=== PATIENT | female | born 1945 | race African-American/Black ===

== ENCOUNTER → 2017-09-21 | Outpatient (CLI) | payer OTHER ==
[~2017-09-21] MED LIST: ALEN1TAB48 PO; AMLO10 PO; AMLO10TA2 PO; ATOR20TA PO; ATOR20TA15 PO; ENOX40P SQ; GLUCTAB PO; LISI-363 PO; LISI-515 PO; METF500T4 PO; NAPR-729 PO; THERM PO; VENL-37 PO; VENL75TA2 PO
--- NOTE | 2017-09-21 11:14 | RADRPT ---
EXAM DATE/TIME: 09/21/2017 10:59 [facility] COMPARISON: No previous studies available for comparison. INDICATIONS : Evaluate for pneumonia, pneumothorax, or communicable disease. Pre op for cervical spine surgery on 2017. MEDICAL HISTORY : Hypertension. Diabetes mellitus type II. SURGICAL HISTORY : None. ENCOUNTER: Initial ACUITY: 1 day PAIN SCORE: 0/10 LOCATION: Bilateral chest FINDINGS: PA and lateral views of the chest demonstrate the lungs to be symmetrically aerated without evidence of mass, infiltrate or effusion. The cardiomediastinal contours are unremarkable. Osseous structure s are intact. CONCLUSION: No acute disease. Kody Harris MD on September 21, 2017 at 11:11 Board Certified Radiologist. This report was verified electronically.
--- NOTE | 2017-09-21 22:57 | EKG ---
Date Performed: 09/21/2017 Time Performed: 09:53:37 PTAGE: 72 years EKG: Sinus rhythm NORMAL ECG NO PREVIOUS TRACING DOCTOR: Chet Holt Interpretating Date/Time 09/21/2017 22:56:20
== END ==
LOC: CPRE 08:50
PROVIDERS: ATTEND Neurological Surgery
DX: Z01.812 Encounter for preprocedural laboratory examination (principal); Z01.810 Encounter for preprocedural cardiovascular examination; Z01.811 Encounter for preprocedural respiratory examination; Z01.818 Encounter for other preprocedural examination
CPT/HCPCS: 71046; 87640; 87641; 93005

== ENCOUNTER 2017-10-07 05:53 | Observation (INO) | payer OTHER ==
[~2017-10-07] VITALS: Ht 154.9 cm; Wt 62.9 kg
[~2017-10-07 05:53] MED LIST changes: -AMLO10 PO; -ATOR20TA PO; -ENOX40P SQ; -GLUCTAB PO; -LISI-363 PO; -NAPR-729 PO; -THERM PO; -VENL-37 PO
[2017-10-07] MEDS ORDERED: CHLORHEXIDINE GLUCONATE 2 % 1 PACK (2 CLOTHS) TOPICAL PRN (06:30)
[2017-10-07] MEDS ORDERED: SODIUM CHLORID 0.9% 500 ML IV PRN (06:30)
[2017-10-07] MEDS ORDERED: LACTATED RINGER'S 1000 ML IV PRN (06:30)
[2017-10-07] MEDS ORDERED: CEFAZOLIN INJ 2,000 MG in SODIUM CHLORIDE 0.9% INJ 100 ML IV SCH (06:30)
[2017-10-07] MEDS ORDERED: METOPROLOL TARTRATE 25 MG TAB PO PRN (06:30)
[2017-10-07] MEDS ORDERED: POVIDONE IODINE 5% (ANTISEPSIS KIT) 4 APPLICATIONS EACH NARE PRN (06:30)
[2017-10-07] MEDS ORDERED: GENTAMICIN SULFATE 80 MG/2 ML VIAL ONE (07:24)
[2017-10-07] MEDS ORDERED: THROMBIN (TOPICAL) 5,000 UNIT VIAL ONE (07:24)
[2017-10-07] MEDS ORDERED: GELFOAM SIZE 100 ONE (07:24)
[2017-10-07] MEDS ORDERED: ACETAMINOPHEN 1000 MG/100 ML 100 ML IV ONE ×2 (08:37→09:16)
[2017-10-07] MEDS ORDERED: HYDROmorphone HCL PF 2 MG/ML VIAL ONE (08:38)
[2017-10-07] MEDS ORDERED: PROPOFOL 500 MG/50 ML INJ 150 ML ONE (08:38)
[2017-10-07] MEDS ORDERED: PROPOFOL 500 MG/50 ML INJ 50 ML ONE (09:16)
[2017-10-07] MEDS ORDERED: PROPOFOL 500 MG/50 ML INJ 100 ML ONE (09:17)
[2017-10-07] MEDS ORDERED: DEXAMETHASONE SOD PHOS 4 MG/ML VIAL ONE (09:17)
[2017-10-07] MEDS ORDERED: ROCURONIUM INJ 50 MG/5 ML SYRINGE IV PUSH ONE (12:00)
[2017-10-07] MEDS ORDERED: DEXAMETHASONE SOD PHOS 4 MG/ML VIAL IV ONE (12:00)
[2017-10-07] MEDS ORDERED: ONDANSETRON HCL 4 MG/2 ML VIAL IV ONE (12:00)
[2017-10-07] MEDS ORDERED: SUCCINYLCHOLINE CHLORIDE 200 MG/10 ML VIAL IV ONE (12:00)
[2017-10-07] MEDS ORDERED: PROPOFOL 200 MG/20 ML AMP IV ONE (12:00)
[2017-10-07] MEDS ORDERED: SODIUM CHLORIDE 0.9% 10 ML VIAL IV FLUSH ONE (12:00)
[2017-10-07] MEDS ORDERED: LIDOCAINE HCL 1% PF 5 ML SYRINGE OTHER ONE (12:00)
[2017-10-07] MEDS ORDERED: LACTATED RINGER'S 1000 ML INJ 1,000 ML IV ONE (12:00)
[2017-10-07] MEDS ORDERED: PHENYLEPH/NS 1000 MCG/10 ML SYR IV ONE (12:00)
[2017-10-07] MEDS ORDERED: HYDR-3516 PO (14:00)
[2017-10-07] MEDS ORDERED: DO NOT ADM ANY ANTICOAGULANT DRUGS PRN (14:10)
[2017-10-07] MEDS ORDERED: CYCLOBENZAPRINE HCL 10 MG TAB PO PRN (14:15)
[2017-10-07] MEDS ORDERED: MIDAZOLAM HCL 2 MG/2 ML VIAL ONE (14:15)
[2017-10-07] MEDS ORDERED: ACETAMINOPHEN 325 MG TAB PO PRN (14:15)
[2017-10-07] MEDS ORDERED: DEXTROSE 50% IN WATER 50 ML VIAL(D50) IV PUSH PRN (14:15)
[2017-10-07] MEDS ORDERED: ACETAMINOPHEN/HYDROcodone 325 MG/10 MG TAB PO PRN ×2 (14:15)
[2017-10-07] MEDS ORDERED: ONDANSETRON HCL 4 MG/2 ML VIAL IV PRN (14:15)
[2017-10-07] MEDS ORDERED: cloNIDine HCL 0.1 MG TAB PO/NG PRN (14:15)
[2017-10-07] MEDS ORDERED: MORPHINE SULFATE 4 MG/ML INJ IV PUSH PRN (14:15)
[2017-10-07] MEDS ORDERED: MAGNESIUM HYDROXIDE SUSP 30 ML CUP PO PRN (14:15)
[2017-10-07] MEDS ORDERED: RESP: ALBUTEROL 2.5 MG/3 ML NEB (PRN) INH (14:15)
[2017-10-07] MEDS ORDERED: MENTHOL LOZENGE BUCCAL PRN (14:15)
[2017-10-07] MEDS ORDERED: GLUCAGON 1 MG/ML VIAL OTHER PRN ×2 (14:15)
[2017-10-07] MEDS ORDERED: MORPHINE SULFATE 2 MG/ML INJ IV PUSH PRN (14:15)
[2017-10-07] MEDS ORDERED: ceFAZolin 2 GM PREMIX 50 ML IV SCH (14:15)
--- NOTE | 2017-10-07 14:21 | RADRPT ---
EXAM DATE/TIME: 10/07/2017 10:11 [facility] COMPARISON: No previous studies available for comparison. INDICATIONS : Post-op C6 corpectomy. C5 to C7 anterior fusion. MEDICAL HISTORY : None. SURGICAL HISTORY : None. ENCOUNTER: Initial ACUITY: 1 day PAIN SCORE: Non-responsive. LOCATION: neck FINDINGS: AP and lateral views of the cervical spine were obtained and demonstrate the patient is status post a nterior cervical fusion at the C5-C7 level with corpectomy at C6. There is a mild anterior spondyloli sthesis of C3 on C4 of approximately 4-5 mm. The nasogastric tube and temperature probe are noted. Th ere is overlying artifact. CONCLUSION: 1. Status post anterior cervical fusion from C5-C7 level with corpectomy at C6. 2. Mild anterior spondylolisthesis of C3 on C4 of approximately 4 to 5 mm. Joe Salcedo MD on October 07, 2017 at 14:16 Board Certified Radiologist. This report was verified electronically.
--- NOTE | 2017-10-07 14:22 | RADRPT ---
EXAM DATE/TIME: 10/07/2017 10:11 [facility] COMPARISON: No previous studies available for comparison. INDICATIONS : C6 corpectomy. C5 to C7 anterior fusion. Level localization. MEDICAL HISTORY : None. SURGICAL HISTORY : None. ENCOUNTER: Initial ACUITY: 1 day PAIN SCORE: Non-responsive. LOCATION: neck FINDINGS: A single crosstable lateral view of the cervical spine was obtained and demonstrates a metallic marke r located anterior to the C5-6 interspace. Mild grade 1 anterospondylolisthesis of C3-C3 on C4 is not ed of several millimeters. There are apparent degenerative changes at C5-6. CONCLUSION: Limited localization study as noted. Joe Salcedo MD on October 07, 2017 at 14:19 Board Certified Radiologist. This report was verified electronically.
[2017-10-07] MEDS ORDERED: BISACODYL 10 MG SUPP RECTAL PRN (15:00)
[2017-10-07] MEDS: SODIUM CHLOR 0.9% 1000 ML INJ 1,000 ML IV SCH (15:00)
--- NOTE | 2017-10-07 15:44 | PD.OP ---
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 Anesthesia: general endotracheal Surgeon: Ruperto Duffy Bicycle Designer(s): Melly Langford Operation and Findings: INDICATIONS FOR THE PROCEDURE Ms al is a 72 year-old female who presented with intractable neck pain and clinical evidence of cervical myelopathy. She was found to have OPLL. She failed maximum nonsurgical management. Initially a C5-6 and C6-7 anterior cervical discectomy and arthrodhesis was attempted, however, given the extensive calcification of the posterior longitudinal ligament and mass effect on the spinal cord, a proper surgical decompression could not be achieved by performing an anterior cervical discectomy and a corpectomy and arthrodhesis were indicated. The [id number] details of the procedure, indications, alternatives, risks and potential complications were fully discussed with the patient. The patient fully understood. All The questions were answered. No guarantees were given. The patient voiced requesting the procedure and provided informed consents. The patient was offered the alternative of delaying the procedure and continuing with nonsurgical management. DETAILS OF THE SURGICAL PROCEDURE After the induction of general anesthesia, endotracheal intubation was performed. Electrodes were placed for electrophysiological monitoring of the somatosensorial evoked potentials, EMG, laryngeal nerve EMG, and motor evoked potentials prior to the intubation and kept thorough the procedure. A Hicks catheter, bilateral ANGELINE hose, and sequential compression devices were placed and kept throughout the procedure. The patient was positioned supine on a Ignacio table with the head over a gel doughnut. All pressure points were carefully padded with eggcrate mattress. The eyes were tapped shut after ointment was applied by the anesthesiologist to prevent corneal abrasion. A Alyssa hugger was placed over the exposed lower body to maintain control of the core body temperature. The electrophysiological team placed the needles and electrodes in their proper location and baseline SSEP's and motor evoked potentials were registered. The anterior cervical region was prepped and draped in the usual sterile fashion. A localizing x-ray was performed with a C-arm. Surgical exposure A skin incision was made along the superior cervical crease with a #10 blade. The dissection was carried out through the platysma exposing the sternocleidomastoid. The cervical spine was approached following the fascial layers of the neck just medial to the anterior border of the sternocleidomastoid and carotid sheath by a combination of sharp and dull dissection. The omohyoid muscle was identified and carefully dissected laterally and the deep cervical fascia was carefully opened. The longus colli muscles were retracted to each side of the midline. A cervical marker was placed at the disk space and a cross-table lateral x-ray performed with a C- arm. An anterior osteophytic spur was carefully removed, and a self-retaining retractor was placed underneath the longus colli muscle. Corpectomy At this point in the procedure the operating microscope was draped in the usual sterile fashion and brought to the field. The rest of the surgical procedure was performed using microdissection technique with the exception of the closure. A micro discectomy was initially performed at the superior and inferior disks adjacent to the corpectomy. The corpectomy was then drilled with the TPS drill and the bones obtained were saved for use during the fusion. The mass affect on the anterior surface of the dural sac was carefully relieved by drilling with a TPS drill under high magnification. A complete resection of the vertebral body was achieved. The posterior longitudinal ligament was elevated with an angled curet and removed with a thin footplate 2 mm Kerrison. A bilateral foraminotomy was performed with a Kerrison. The epidural space was assessed with a nerve hook. Interbody arthrodhesis The incision was then irrigated with a large amount of antibiotic solution and the endplates were evenly decorticated with a TPS drill in preparation for the interbody arthrodesis. The interbody arthrodesis was then preformed by carefully impacting a Titanium Mesh cage filled with autologous bone graft to the corpectomy space, and a good position of the cage was achieved which was confirmed anatomically by fealing the epidural space with a nerve root and radiologically with the isocentric C-arm. Instrumental fixation Then, a Hallmark plate was brought to the field and secured with 14 mm screws. A reasonable purchase was achieved with all screws and the position of the cage, plate and screws, and alignment of the spine was assessed radiologically with the C-arm. Closure The incision was irrigated with antibiotic solution. Hemostasis was achieved with a bipolar. The screws were locked to prevent backing out. A 7 mm Ignacio- Edwards drain was left in the prevertebral space and externalized through a separate stab incision. The incision was then closed in layers. 3-0 Vicryl with interrupted sutures was used to close the platysma and subcutaneous tissue. The skin was closed with 4-0 running subcuticular Vicryl and Dermabond was applied to the skin. The drain was secured with a 3-0 nylon. At the end of the procedure the sponge, needle and instrument counts were all correct. The estimated blood loss was 150 cc. No blood transfusion was given. No intraoperative complications occurred. The patient received prophylactic antibiotics. The patient was then extubated and transferred to the recovery room in stable condition. Ruperto Duffy MD Oct 07, 2017 15:43
[2017-10-07] MEDS: DEXAMETHASONE SOD PHOS 4 MG/ML VIAL IV PUSH SCH ×2 (15:48→20:59)
[2017-10-07 16:30] VITALS: BP 138/71; PULSE 91; RESP 16; TEMP 97.5; O2SAT 100
[2017-10-07] MEDS: INSULIN ASPART SUPPLEMENTAL SCALE SQ SCH ×2 (17:00→21:08)
[2017-10-07] MEDS: CEFAZOLIN INJ 2,000 MG in SODIUM CHLORIDE 0.9% INJ 100 ML IV SCH (17:14)
[2017-10-07 20:00] VITALS: BP 153/80; PULSE 92; RESP 18; TEMP 98.3; O2SAT 98
[2017-10-07] MEDS: DOCUSATE SODIUM 100 MG CAP PO SCH (20:57)
[2017-10-07] MEDS ORDERED: CHLORHEXIDINE GLUCONATE 4% SOLN 120 ML BTL TOP SCH (21:00)
[2017-10-08] VITALS: BP 148/81; PULSE 84; RESP 18; TEMP 97.9; O2SAT 99
[2017-10-08] MEDS: SODIUM CHLOR 0.9% 1000 ML INJ 1,000 ML IV SCH ×2 (00:30→10:30)
[2017-10-08] MEDS: CEFAZOLIN INJ 2,000 MG in SODIUM CHLORIDE 0.9% INJ 100 ML IV SCH ×2 (01:45→09:27)
[2017-10-08] MEDS: DEXAMETHASONE SOD PHOS 4 MG/ML VIAL IV PUSH SCH ×3 (03:00→15:00)
[2017-10-08 04:00] VITALS: BP_SYST 153; BP_SYST 163; BP_DIAS 79; BP_DIAS 84; PULSE 80; PULSE 88; RESP 18; RESP 20; TEMP 98; TEMP 98.8; O2SAT 100; O2SAT 97
[2017-10-08 08:00] VITALS: BP 156/74; PULSE 76; RESP 16; TEMP 97.9; O2SAT 96
[2017-10-08] MEDS ORDERED: PANTOPRAZOLE SODIUM 40 MG VIAL IVP PRN (09:00)
[2017-10-08] MEDS ORDERED: PANTOPRAZOLE SOD 40 MG DELAYED RELEASE TAB PO SCH (09:00)
[2017-10-08] MEDS: INSULIN ASPART SUPPLEMENTAL SCALE SQ SCH ×2 (09:26→12:42)
[2017-10-08] MEDS: DOCUSATE SODIUM 100 MG CAP PO SCH (09:28)
[2017-10-08 12:00] VITALS: BP 169/81; PULSE 82; RESP 16; TEMP 98.4; O2SAT 100
--- NOTE | 2017-10-08 15:48 | HHI.NSPN ---
(Guero Klein) History Chief Complaint: Concern about sugar due to steroids (Guero Klein) Interval History 10/07: The patient presented to [facility] to have a C6 corpectomy with, interbody arthrodesis and a C5-C7 instrumental fixation. Post-operatively she was transferred to a regular med/surg floor. 10/08: The patient is sitting up in the chair playing Spireon on her cellphone and watching TV. She does say she has a little pain to the neck. She denies any pain to the surgical incision. She says her sore throat and swallowing are much better. She says the numbness she had to the upper extremities has resolved but it does feel different to the medial hand along the fifth metacarpal and digit to both hands. Her biggest concern is her blood sugar due to the steroid she is on. A review of the EMR shows that she is not going home on a steroid but was given it in the hospital. She is moving all extremities spontaneously and appropriately. She does have some weakness to the hands and the right upper extremity. (Guero Klein) Exam Results 10/06/17 10/06/17 10/07/17 10/07/17 10/08/17 10/08/17 06:00 18:00 06:00 18:00 06:00 18:00 Intake Total 1900 ml 1687 ml 446 ml Output Total 1425 ml 70 ml 30 ml Balance 475 ml 1617 ml 416 ml Intake Oral 480 ml IV Total 100 ml 1207 ml 446 ml Other 1800 ml Output Urine Total 1200 ml Drainage Total 25 ml 70 ml 30 ml Estimated Blood Loss 200 ml # Voids 1 # Bowel Movements 0 Vital Signs Date Time Temp Pulse Resp B/P (MAP) Pulse Ox O2 Delivery O2 Flow Rate FiO2 10/08/17 12:00 98.4 82 16 169/81 (110) 100 10/08/17 08:00 97.9 76 16 156/74 (101) 96 10/08/17 04:00 98.0 80 18 163/79 (107) 100 10/08/17 00:00 97.9 84 18 148/81 (103) 99 10/07/17 20:00 98.3 92 18 153/80 (104) 98 10/07/17 16:30 97.5 91 16 138/71 (93) 100 10/07/17 15:45 98.6 97 16 136/78 (97) 98 Nasal Cannula 2 10/07/17 15:30 98 16 135/70 (91) 97 Nasal Cannula 2 10/07/17 15:15 99 16 136/78 (97) 96 Nasal Cannula 2 10/07/17 15:00 100 15 141/79 (99) 100 Nasal Cannula 3 10/07/17 14:45 101 15 142/80 (100) 99 Nasal Cannula 3 10/07/17 14:30 103 14 138/75 (96) 98 Nasal Cannula 3 10/07/17 14:15 105 14 139/78 (98) 100 Nasal Cannula 4 10/07/17 14:10 99.3 109 10 139/80 (99) 99 Nasal Cannula 4 10/07/17 06:55 99.1 76 20 131/83 (99) 96 (Guero Klein) Physical Examination GENERAL: Awake & alert sitting in the chair playing solitaire and watching TV. Her affect is essentially normal and she readily interacts. She is not in any apparent distress. HEENT: Normocephalic, atraumatic. NECK: Nash J cervical collar is in place. The midline cervical spine is NTTP. The left anterior neck surgical incision is NTTP, the dressing is dry & intact, VAL drain to bulb suction w/serosanguinous drainage. RESPIRATORY: CTAB w/o W/R/R, equal excursion, nonlaboured, on RA. CARDIOVASCULAR: S1S2 w/RRR w/o M/G/R. GASTROINTESTINAL: Abdomen soft, nontender, positive bowel sounds. MUSCULOSKELETAL: Moves all extremities spontaneously & purposefully w/o difficulty. No evident clubbing or deformity. The hands are TTP which is new. NEUROLOGICAL: AAOx3. Speech clear & appropriate. Follows simple commands w/o difficulty. Sensation is decreased to the medial hands along the 5th metacarpal bilaterally and the hands are TTP, o/w sensation is intact to light touch. Motor strength is 3+ to 4/5 to the hand intrinsics & extrinsics bilaterally and the right triceps is 4/5, o/w it is 5/5 to all major flexion & extension muscle groups of the extremities, to include wrist flexors & extensors. (Guero Klein) Lab, Micro, Other Results Recent Impressions Cervical Spine X-Ray 10/07/17 0000 Signed Impressions: Service Date/Time: Saturday, October 07, 2017 10:11 - CONCLUSION: Limited localization study as noted. Joe Salcedo MD Cervical Spine X-Ray 10/07/17 0000 Signed Impressions: Service Date/Time: Saturday, October 07, 2017 10:11 - CONCLUSION: 1. Status post anterior cervical fusion from C5-C7 level with corpectomy at C6. 2. Mild anterior spondylolisthesis of C3 on C4 of approximately 4 to 5 mm. Joe Salcedo MD (Guero Klein) Medical Decision Making Impression and Plan Impression: Ossification of posterior longitudinal ligament Patient is doing well. She has resolution of her pre-operative numbness. She does have altered sensation & tenderness to both hands post-operatively. Improving sore throat & swallowing. Tachycardia resolved. Intermittent elevated SBP. VAL drain output 95 mL since surgery as of shift change this morning. Has had another 30 mL out since then. Plan: Discussed plan of care w/patient. D/c VAL drain. Will d/c patient home. (Guero Klein) Attending Statement The exam, history, and the medical decision-making described in the above note were completed with the assistance of the mid-level provider. I reviewed and agree with the findings presented. I attest that I had a [id number] encounter with the patient on the same day, and personally performed and documented my assessment and findings in the medical record. (Madhu Garduno MD) Guero Klein Oct 08, 2017 15:48 Madhu Garduno MD Oct 08, 2017 21:35
--- NOTE | 2017-10-10 09:34 | HHI.DS ---
Discharge Summary Admission Date Oct 07, 2017 at 14:03 Discharge Date: Oct 08, 2017 Admitting Diagnosis s/p cervical fusion (1) Status post cervical arthrodesis ICD Code: Z98.1 - Arthrodesis status Brief History Ms Cornell is a 72 year-old female who presented with intractable neck pain and clinical evidence of cervical myelopathy. She was found to have OPLL. She failed maximum nonsurgical management. Initially a C5-6 and C6-7 anterior cervical discectomy and arthrodesis was attempted, however, given the extensive calcification of the posterior longitudinal ligament and mass effect on the spinal cord, a proper surgical decompression could not be achieved by performing an anterior cervical discectomy and a corpectomy and arthrodesis were indicated. Imaging Last Impressions Cervical Spine X-Ray 10/07/17 0000 Signed Impressions: Service Date/Time: Saturday, October 07, 2017 10:11 - CONCLUSION: Limited localization study as noted. Joe Salcedo MD Hospital Course Ms. Cornell underwent a C6 corpectomy, interbody arthrodesis using Titanium cage with autologous bone graft, C5-C7 instrumental fixation using Simplicity plate and screws on Oct 07, 2017 for ossification of posterior longitudinal ligament. She was discharged home the following day in stable conditions. Pt Condition on Discharge: Stable Discharge Disposition: Discharge Home Discharge Instructions DIET: Follow Instructions for: Diabetic Diet Speech Therapy-Diet Recommenda: Soft ACTIVITIES You can perform: Weight Bearing As [place] Activities to Avoid: Strenuous Activity New Medications: Hydrocodone-Acetaminophen (Hydrocodone-Acetaminophen) 5-325 mg Tab 1 TAB PO Q8HR PRN for PAIN, #62 TAB 0 Refills Continued Medications: Alendronate (Alendronate) 70 Mg Tab 70 MG PO Q7D for Osteporosis Treatment, #4 TAB 0 Refills Amlodipine (Amlodipine) 10 Mg Tab 10 MG PO HS for Blood Pressure Management, #30 TAB 0 Refills Atorvastatin (Atorvastatin) 20 Mg Tab 20 MG PO HS for Cholesterol Management, #30 TAB 0 Refills Lisinopril (Lisinopril) 20 Mg Tab 20 MG PO HS, #30 TAB 0 Refills Metformin ER (Metformin ER) 500 Mg Alice 500 MG PO HS for Blood Sugar Management, TAB 0 Refills With evening meal Venlafaxine ER 24 HR (Venlafaxine ER 24 HR) 75 Mg Tab 75 MG PO HS, #30 TAB 0 Refills Mague Garcia Oct 10, 2017 09:34
== END 2017-10-08 18:56 | disposition home health service (06) ==
LOC: HSDC 05:53 → HSDI 14:03 → N06B 16:04
PROVIDERS: ADMIT Neurological Surgery; ATTEND Neurological Surgery
DX: M48.8X2 Other specified spondylopathies, cervical region (principal); M54.2 Cervicalgia; E11.9 Type 2 diabetes mellitus without complications; I10 Essential (primary) hypertension; M19.90 Unspecified osteoarthritis, unspecified site; Z79.84 Long term (current) use of oral hypoglycemic drugs; F17.200 Nicotine dependence, unspecified, uncomplicated
CPT/HCPCS: 00600; 20936; 22551; 22552; 22845; 72020; 72040; 76000; 82948; 94150; 96365; 96366; 96372; 96375; 96376; 97162; C1713; G0378; G8987; G8988; J0131; J0330; J0690; J1100; J1170; J1580; J1815; J2250; J2370; J2405; J3010; J7030; J7120; L0150; L0172